=== PATIENT | female | born 1960 | race Caucasian/White ===

== ENCOUNTER → 2018-05-06 09:15 | Outpatient (CLI) | payer SELFPAY ==
--- NOTE | 2018-05-06 09:48 | MRI_ITS ---
STUDY: MRI LUMBAR SPINE WITHOUT CONTRAST REASON FOR EXAM: Female, 57 years old. CHRONIC LBP RADIATING DOWN LEGS INTO FEET, LEFT and gt; RIGHT. TECHNIQUE: Standardized fat and water weighted pulse sequences were obtained in the sagittal and axial planes. COMPARISON: None FINDINGS: T12-L1: Normal endplates. Normal disc height, hydration and morphology. Normal bilateral facet joints. Normal central canal and bilateral lateral recesses. Normal bilateral intervertebral neural foramina. Normal lumbar lordosis. There is no substantial scoliosis. Normal conus medullaris that terminates at the T12 L1-2: Normal endplates. Normal disc height, hydration and morphology. Normal bilateral facet joints. Normal central canal and bilateral lateral recesses. Normal bilateral intervertebral neural foramina. L2-3: Normal endplates. Normal disc height, hydration and morphology. Normal bilateral facet joints. Normal central canal and bilateral lateral recesses. Normal bilateral intervertebral neural foramina. L3-4: There is minimal disc space narrowing and endplates spondylosis. There is moderate facet arthropathy with minimal anterolisthesis without significant central canal or foraminal stenosis. L4-5: There is minimal disc space narrowing and endplates spondylosis. There is moderate facet arthropathy with minimal anterolisthesis without significant central canal or foraminal stenosis. L5-S1: There is minimal disc space narrowing and endplate spondylosis. There is no significant disc herniation, central canal or foraminal stenosis. There is mild facet arthropathy Normal visualized sacral ala. Normal visualized paraspinous soft tissue structures. MRI/Spine Lumbar (Routine) IMPRESSION: L3/L4: Grade 1 degenerative anterolisthesis. L4/L5: Grade 1 degenerative anterolisthesis. Electronically Signed: Johnson Howard MD at 10:56 EDT Tel , Service support ,
== END ==
DX: M54.5 Low back pain (principal); G89.29 Other chronic pain
CPT/HCPCS: 72148